=== PATIENT | male | born 1975 | race Caucasian/White ===

== ENCOUNTER 2017-05-29 16:18 | Emergency (ER) | payer OTHER ==
--- NOTE | 2017-05-29 16:27 | PDOC ---
Rapid Medical Evaluation Time Seen by Provider: 05/29/17 16:25 Medical Evaluation: 05/29/17 16:25 I have performed a brief in-person evaluation of this patient. The patient presents with a chief complaint of: slipped and fell down stairs a week ago, denies LOC, left arm pain/swelling Pertinent physical exam findings: swelling to L elbow, no erythema/ecchymosis, FROM I have ordered the following: left elbow xray The patient will proceed to the ED for further evaluation. Discharge Disposition - Diagnosis Elbow pain, left - Referrals - Patient Instructions - Post Discharge Activity
[2017-05-29 16:28] VITALS: BP 123/76; PULSE 79; TEMP 97.5; BMI 26.2
--- NOTE | 2017-05-29 18:27 | PDOC ---
History of Present Illness - General Chief Complaint: Injury Stated Complaint: INJURY Time Seen by Provider: 05/29/17 16:25 History Source: Patient Exam Limitations: No Limitations - History of Present Illness Initial Comments: 05/29/17 18:21 41 yr male with left elbow injury . pt states he slipped and fell one week ago landed on left elbow. 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 05/29/17 18:31 Occurred: reports: last week Extremity Pain Location - Extremity Pain Location Extremity Pain Locations: left: elbow Past History - Past Medical History Allergies/Adverse Reactions: Allergies Allergy/AdvReac Type Severity Reaction Status Date / Time amoxicillin Allergy Verified 05/29/17 16:25 COPD: No - Suicide/Smoking/Psychosocial Hx Smoking History: Current every day smoker Have you smoked in the past 12 months: Yes Number of Cigarettes Smoked Daily: 10 Information on smoking cessation initiated: Yes 'Breaking Loose' booklet given: 05/29/17 Hx Alcohol Use: No Drug/Substance Use Hx: No Substance Use Type: None Review of Systems - Review of Systems Able to Perform ROS?: Yes Is the patient limited Tamazight proficient: No Constitutional: No: Symptoms Reported HEENTM: No: Symptoms Reported Respiratory: No: Symptoms reported Cardiac (ROS): No: Symptoms Reported Musculoskeletal: Yes: Symptoms Reported *Physical Exam - Vital Signs Last Vital Signs Temp Pulse Resp BP Pulse Ox 97.5 F L 79 18 123/76 100 05/29/17 16:26 05/29/17 16:26 05/29/17 16:26 05/29/17 16:26 05/29/17 16:26 - Physical Exam General Appearance: Yes: Nourished, Appropriately Dressed HEENT: positive: EOMI, BHARATHI Neck: negative: Tender, Lymphadenopathy (R), Lymphadenopathy (L) Extremity: positive: Normal Capillary Refill, Normal Range of Motion, Swelling ( lateral left elbow with boggy area, no redness no warmth to touch , non tender) Integumentary: positive: Normal Color, Dry, Warm Neurologic: positive: Fully Oriented, Alert, Normal Mood/Affect, Normal Response , Motor Strength 5/5 Medical Decision Making - Medical Decision Making 05/29/17 18:33 cc: left elbow injury one week ago has continued swelling , FROM non tender no redness , no warmth xray is negative for fracture 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 dc with warm moist compresses follow up with ortho as needed if any worsening symptoms pt agrees and understands the plan *DC/Admit/Observation/Transfer Diagnosis at time of Disposition: Elbow pain, left - Discharge Dispostion Disposition: HOME Condition at time of disposition: Good - Referrals Referrals: Mike Dodge MD [Primary Care Provider] - Anupam Clark MD [Staff Physician] - - Patient Instructions Additional Instructions: apply warm compresses to the area of pain every 2hrs for 20 minutes while awake when you can take advil as needed follow with the orthopedist for follow up if any worsening symptoms - Post Discharge Activity
== END 2017-05-29 19:23 | disposition home or self-care (01) ==
LOC: JERFT 16:18
DX: M25.522 Pain in left elbow (principal); W10.8XXA Fall (on) (from) other stairs and steps, initial encounter; Y93.89 Activity, other specified; Y92.89 Other specified places as the place of occurrence of the external cause
CPT/HCPCS: 73070-TC-LT-FY; 99281-25

== ENCOUNTER 2020-08-28 09:26 | Emergency (ER) | payer OTHER ==
[2020-08-28 09:36] VITALS: BP 121/81; PULSE 72; TEMP 98.2; BMI 24.8
[2020-08-28 10:22] LABS: BASO % 1.7 % (0-2.0); HEMATOCRIT 42.5 % (35.4-49); HEMOGLOBIN 14.1 GM/dl (11.7-16.9); LYMPH % 30.5 % (8-40); MCH 30.6 pg (25.7-33.7); MCHC 33.1 g/dl (32.0-35.9); MEAN CELL VOLUME 92.5 fl (80-96); MEAN PLT VOLUME 8.1 fl (7.5-11.1); MONO % 7.2 % (3.8-10.2); NEUT % 57.6 % (42.8-82.8); PLATELET COUNT 232 K/MM3 (134-434); RDW 12.5 % (11.9-15.9); WHITE BLOOD COUNT 5.7 K/mm3 (4.0-10.8)
[2020-08-28] MEDS ORDERED: ACETAMINOPHEN 500 MG TABLET (FP) PO ONE (10:27)
[2020-08-28] MEDS ORDERED: ACETAMINOPHEN 500 MG TABLET (FP) ONE (10:29)
[2020-08-28 10:33] LABS: ALBUMIN 4.4 g/dl (3.4-5.0); BILIRUBIN,TOTAL 1.5 mg/dl (0.2-1); CALCIUM 9.4 mg/dl (8.5-10); TOT PROT 7.3 g/dl (6.4-8.2)
== END 2020-08-28 11:50 | disposition home or self-care (01) ==
LOC: FER 09:26
PROC: 3E0333Z Introduction of Anti-inflammatory into Peripheral Vein, Percutaneous Approach (ICD-10-PCS; principal; 2020-08-28)
DX: R31.9 Hematuria, unspecified (principal); R10.30 Lower abdominal pain, unspecified; R59.0 Localized enlarged lymph nodes
CPT/HCPCS: 36415; 74176-TC; 80053; 81003; 81015; 84443; 85025; 87086; 96374; 99284-25